=== PATIENT | female | born 1965 | race Two or more races ===

== ENCOUNTER 2022-02-13 05:00 | Day surgery (SDC) | payer OTHER ==
[~2022-02-13] VITALS: Ht 170.2 cm; Wt 69.4 kg
[~2022-02-13 05:00] MED LIST: CHLORTHALIDONE25 MG PO; LIPITOR40 MG PO; LOSARTAN POTAS100 MG PO; TOPROL XL25 M1 PO
[2022-02-13] MEDS ORDERED: ULTRAM50 MG PO (10:52)
== END 2022-02-13 15:10 | disposition home or self-care (01) ==
LOC: CIR.AMB 05:00
PROVIDERS: ATTEND Surgery
DX: D35.1 Benign neoplasm of parathyroid gland (principal); R59.0 Localized enlarged lymph nodes; Z20.822 Contact with and (suspected) exposure to COVID-19; E21.0 Primary hyperparathyroidism; Z88.0 Allergy status to penicillin; Z88.8 Allergy status to other drugs, medicaments and biological substances; I10 Essential (primary) hypertension; J45.909 Unspecified asthma, uncomplicated; N18.30 Chronic kidney disease, stage 3 unspecified; M79.7 Fibromyalgia